=== PATIENT | female | born 1985 | race Caucasian/White ===

== ENCOUNTER 2016-09-07 15:59 | Emergency (ER) | payer MEDICAID, OTHER ==
[~2016-09-07] VITALS: Ht 157.5 cm; Wt 70.0 kg
[~2016-09-07 15:59] MED LIST: AZIT250T74 PO; GUAI100S6 PO
[2016-09-07 16:02] VITALS: BP 129/88; PULSE 71; RESP 16; TEMP 98.4; O2SAT 99
[2016-09-07] MEDS ORDERED: ALA1CRE2 TOPICAL (16:22)
[2016-09-07] MEDS ORDERED: PRED-503 PO (16:22)
--- NOTE | 2016-09-07 16:22 | PD ---
HPI Chief Complaint: Skin Problem Time Seen by Provider: 16:09 Travel History International Travel<30 days: No Contact w/Intl Traveler<30days: No Traveled to known affect area: No History of Present Illness HPI The patient is a 31-year-old female who presents emergency department for rash on the extensor surface of both hands. The patient states she has similar rash last year on the extensor surface of her hands. The patient used a steroid cream which resolved the rash. However, the rash returned recently, she was using the steroid cream which resolved, however, after she stopped using the steroid cream this spring, it returned. It is pruritic, occasionally weeps after itching. The patient does states she has recently been using latex gloves at a new job, denies change in any detergents or soaps at home. She denies any history of psoriasis or eczema. She denies any involvement of the rash on the elbows, knees, neck, back, or abdomen. She denies any history of chronic dermatologic disorders. She denies any systemic symptoms including fever, chills, sweats, or history of thyroid disorders. [facility] Past Medical History Medical History: Denies Significant Hx Diminished Hearing: No ?: Not LMP: LAST WEEK Tubal Ligation: Yes Past Surgical History Narrative Surgical section Section: Yes Social History Alcohol Use: Yes (RARE) Tobacco Use: No Substance Use: No Allergies-Medications (Allergen,Severity, Reaction): Coded Allergies: Amoxicillin (Verified Allergy, Severe, HIVES, 09/07/16) Reported Meds & Prescriptions Reported Meds & Active Scripts Active Zithromax (Azithromycin) 250 Mg Tab 500 Mg PO DAILY Robitussin Ac (Guaifenesin/Codeine Phosphate) Syrp 5-10 Ml PO Q6HR PRN FOR COUGH Review of Systems Except as stated in HPI: all other systems reviewed are Neg General / Constitutional: No: Fever Musculoskeletal: No: Myalgias, Arthralgias Skin: Positive Rash, Positive Itching Neurologic: No: Paresthesia, Sensory Disturbance Endocrine: No: Heat Intolerance, Cold Intolerance Physical Exam Narrative GENERAL: Awake, alert, pleasant 31-year-old female who appears her stated age and is in no acute respiratory distress. SKIN: Focused skin assessment warm/dry. Patient has a slightly excoriated rash on the extensor surface of the right hand and mild involvement of the extensor surface of the left hand, no acute weeping or bleeding. No elevated plaque, appears irritated. No visible rashes the extensor surface of the elbows or knees. No visible rash of the thorax or bottom of the feet. HEAD: Atraumatic. Normocephalic. EYES: No injection or drainage. ENT: No nasal bleeding or discharge. Mucous membranes pink and moist. NECK: Trachea midline. No JVD. MUSCULOSKELETAL: No obvious deformities. No clubbing. No cyanosis. No edema. NEUROLOGICAL: Awake and alert. No obvious cranial nerve deficits. Motor grossly within normal limits. Normal speech. PSYCHIATRIC: Appropriate mood and affect; insight and judgment normal. Data Data Last Documented VS Vital Signs Date Time Temp Pulse Resp B/P Pulse Ox O2 Delivery O2 Flow Rate FiO2 09/07/16 16:02 98.4 71 16 129/88 99 MDM Medical Decision Making Medical Screen Exam Complete: Yes Emergency Medical Condition: Yes Medical Record Reviewed: Yes Differential Diagnosis Differential diagnosis includes contact dermatitis, allergic dermatitis, psoriasis, eczema, cellulitis. Narrative Course The patient's history and physical are consistent with contact dermatitis. Therefore, the patient will be placed on a short course of oral steroids and then will be placed on steroid cream. She is advised to use hypoallergenic soaps such as Dove, avoid latex gloves, and avoid hand night cleaner that contains alcohol. The patient is also advised to follow-up with a recruiter. Diagnosis Primary Impression: Contact dermatitis Qualified Code: L25.9 - Contact dermatitis, unspecified contact dermatitis type, unspecified trigger Patient Instructions: General Instructions Additional Instructions: Medications as directed. Use hypoallergenic soap. Avoid latex gloves and hand floor winder contain alcohol based solvents. Follow-up with dermatology if symptoms persist. Med/Other Pt SpecificInfo: Prescription(s) given Scripts Hydrocortisone (Topical) (Ala-Zack Topical)1% Cream1 Applic TOPICAL BID 10 Days Ref 0 Prov:Matt Seay MD 09/07/16 Prednisone (Deltasone)20 Mg Tab40 Mg PO DAILY 5 Days Ref 0 Prov:Matt Seay MD 09/07/16 Disposition: 01 DISCHARGE HOME Condition: Stable Matt Seay MD September 07, 2016 16:22
== END 2016-09-07 16:45 | disposition home or self-care (01) ==
LOC: PHEFT 15:59
DX: L25.9 Unspecified contact dermatitis, unspecified cause (principal); Z88.0 Allergy status to penicillin
CPT/HCPCS: 99282

== ENCOUNTER 2016-09-21 18:08 | Emergency (ER) | payer MEDICAID ==
[~2016-09-21] VITALS: Ht 157.5 cm; Wt 69.7 kg
[~2016-09-21 18:08] MED LIST changes: +ALA1CRE2 TOPICAL; +PRED-503 PO
[2016-09-21 18:24] VITALS: BP 124/92; PULSE 82; RESP 16; TEMP 98.4; O2SAT 97
[2016-09-21 18:41] LABS: BLOOD, URINE LARGE (NEG); GLUCOSE,URINE NEG (NEG); KETONE, URINE NEG (NEG)
[2016-09-21 18:44] LABS: NITRITE,URINE POS (NEG)
[2016-09-21 18:46] LABS: MUCUS URINE FEW /lpf (OCC); SQUAMOUS EPITHELIAL CELL URINE > 8 /hpf (0-5); URINE COLOR YELLOW (YELLW/STRAW)
[2016-09-21 18:47] LABS: BACTERIA, URINE MANY /hpf; COMMENT (UR) CULTURE INDICATED; CULTURE IF INDICATED CULTURE INDICATED
[2016-09-21 19:10] VITALS: BP 128/80; PULSE 80; RESP 17; O2SAT 97
[2016-09-21] MEDS ORDERED: BETA0.0554 TOPICAL (19:51)
[2016-09-21] MEDS ORDERED: MACR100C2 PO (19:52)
--- NOTE | 2016-09-21 20:00 | PD ---
HPI Chief Complaint: Complaint Time Seen by Provider: 19:41 Travel History International Travel<30 days: No Contact w/Intl Traveler<30days: No Traveled to known affect area: No History of Present Illness HPI The patient is a 31-year-old female that complains of dysuria, frequency and urgency for about 24 hours. She denies any fever, nausea, vomiting or flank pain. She also has a skin rash on the dorsum of her right hand that is helped by betamethasone and hydrocortisone ointment did not work for her there. She requested a prescription for betamethasone. [facility] Past Medical History Diminished Hearing: No Tetanus Vaccination: > 5 Years Influenza Vaccination: No ?: Not LMP: 2 WEEKS Tubal Ligation: Yes Past Surgical History Section: Yes Social History Alcohol Use: Yes (RARE) Tobacco Use: No Substance Use: No Allergies-Medications (Allergen,Severity, Reaction): Coded Allergies: Amoxicillin (Verified Allergy, Severe, HIVES, 09/21/16) Reported Meds & Prescriptions Reported Meds & Active Scripts Active Macrobid (Nitrofurantoin Monohydrate Macrocrystals) 100 Mg Capsule 100 Mg PO BID 10 Days Betamethasone Dipropionate Aug Topical 0.05% Cream 1 Applic TOPICAL BID Review of Systems Except as stated in HPI: all other systems reviewed are Neg Physical Exam Narrative GENERAL: Well-nourished, well-developed patient in slight apparent distress with her urinary symptoms. Her vital signs show blood pressure 124/92 but otherwise normal. SKIN: Focused skin assessment warm/dry. There is an erythematous patch on the dorsum of her right hand measuring about 4 x 4 centimeters. This is consistent with contact dermatitis. HEAD: Normocephalic. EYES: No scleral icterus. No injection or drainage. NECK: Supple, trachea midline. No JVD or lymphadenopathy. CARDIOVASCULAR: Regular rate and rhythm without murmurs, gallops, or rubs. RESPIRATORY: Breath sounds equal bilaterally. No accessory muscle use. GASTROINTESTINAL: Abdomen soft, non-tender, nondistended. No flank tenderness is present. MUSCULOSKELETAL: No cyanosis, or edema. BACK: Nontender without obvious deformity. No CVA tenderness. Data Data Last Documented VS Vital Signs Date Time Temp Pulse Resp B/P Pulse Ox O2 Delivery O2 Flow Rate FiO2 09/21/16 18:24 98.4 82 16 124/92 97 Orders Urinalysis - C+S If Indicated (09/21/16 18:19) Ed Urine Pregnancytest Poc (09/21/16 18:38) Urine Culture (09/21/16 18:18) Labs Laboratory Tests Test 09/21/16 18:18 Urine Color YELLOW Urine Turbidity HAZY Urine pH 6.0 Urine Specific [place] 1.026 Urine Protein 100 mg/dL Urine Glucose (UA) NEG mg/dL Urine Ketones NEG mg/dL Urine Occult Blood LARGE Urine Nitrite POS Urine Bilirubin NEG Urine Leukocyte Esterase TRACE Urine RBC 4-9 /hpf Urine WBC 50-99 /hpf Urine Squamous Epithelial > 8 /hpf Cells Urine Bacteria MANY /hpf Urine Mucus FEW /lpf Microscopic Urinalysis Comment CULTURE INDICATED MDM Medical Decision Making Medical Screen Exam Complete: Yes Emergency Medical Condition: Yes Medical Record Reviewed: Yes Differential Diagnosis Cystitis, pyelonephritis, contact dermatitis hand, cellulitis hand, fungal infection hand Narrative Course The patient has cystitis along with contact dermatitis of the right hand. Plan: The patient be given Macrobid for 10 days and betamethasone topically. Diagnosis Primary Impression: Cystitis Additional Impression: Contact dermatitis Additional Instructions: As we discussed, if your hand infection does not get better on betamethasone, please consult a government service executive. Drink plenty of liquids with a urinary infection, it is necessary to establish a good urine flow through your kidneys to be successful. Follow-up with a primary care physician next week. Med/Other Pt SpecificInfo: Prescription(s) given Scripts Nitrofurantoin Monohydrate Macrocrystals (Macrobid)100 Mg [id number] Mg PO BID 10 Days Ref 0 Prov:Fadi Singleton MD 09/21/16 Betamethasone Dipropionate Aug Topical 0.05% Cream1 Applic TOPICAL BID #50 GM Ref 0 Prov:Fadi Singleton MD 09/21/16 Disposition: 01 DISCHARGE HOME Condition: Stable Fadi Singleton MD September 21, 2016 20:00
[2016-09-21 20:03] VITALS: BP 122/72
== END 2016-09-21 20:10 | disposition home or self-care (01) ==
LOC: PHED 18:08
DX: N30.90 Cystitis, unspecified without hematuria (principal); B96.20 Unspecified Escherichia coli [E. coli] as the cause of diseases classified elsewhere; L25.9 Unspecified contact dermatitis, unspecified cause; Z79.899 Other long term (current) drug therapy
CPT/HCPCS: 81001; 84703; 87077; 87086; 87186; 99284